=== PATIENT | male | born 1950 | race Caucasian/White ===

== ENCOUNTER → 2019-04-26 | Outpatient (CLI) | payer MEDICARE, BC ==
--- NOTE | 2019-04-26 11:32 | Diagnostic Imaging Report ---
EXAM: Bone mineral density study 04/26/2019 10:07 AM INDICATION: ^AGE RELATED OSTEOPOROSIS COMPARISON: Previous DEXA 02/16/2017. Baseline DEXA 02/16/2017 FINDINGS: Evaluation of the left hip and lumbar spine was performed. The study is technically adequate. The patient's fracture risk is compared to an age-matched control. The patient denies prior surgery/fracture of the spine, hips or forearm. LEFT HIP * Femoral neck bone mineral density: 0.836 gm/cm2, T-score is -0.7, Z-score is 0.4. * Total bone mineral density: 0.957 gm/cm2, T-score is -0.5, Z-score is 0.1. * BMD change versus previous is -1.0%. LUMBAR SPINE * Total bone mineral density: 1.080 gm/cm2, T-score is -0.1, Z-score is 0.7. * BMD change versus previous is +5.4%. IMPRESSION: 1. LEFT HIP: Bone mineralization by WHO Classification is normal, the fracture risk is not increased. 2. LUMBAR SPINE: Bone mineralization by WHO Classification is normal, the fracture risk is not increased. 3. Since previous (baseline) exam there is no significant change of bone mineral density at the left hip. 4. Since previous (baseline) exam there is significant improvement of bone mineral density in the lumbar spine. <T score: NL = -1 or higher Osteopenia = -1 to -2.5 Osteoporosis = -2.5 or lower Z score: < - 2 concerning for path> Signed by: Dr. Jorge Wagner M.D. on 04/26/2019 11:28 AM
== END ==
LOC: DX 10:00
PROVIDERS: ATTEND Internal Medicine
DX: M81.0 Age-related osteoporosis without current pathological fracture (principal)
CPT/HCPCS: 77080

== ENCOUNTER → 2019-05-03 | Outpatient (CLI) | payer MEDICARE, BC ==
--- NOTE | 2019-05-03 13:59 | Diagnostic Imaging Report ---
Exam: Cervical spine complete History: Preoperative study for cervical spine surgery Comparison: None. Findings: The cervical spine is visualized from skull base to the top of T1 on the lateral radiograph. No acute displaced fracture or subluxation. Soft tissue, ligamentous, and spinal cord abnormalities cannot be excluded on the basis of plain radiography. Mild disc space narrowing and marginal osteophytosis C4-5 and C5-6. Neural foramina are patent. Atlantoaxial interval is within normal limits. Prevertebral soft tissues are of normal thickness. Impression: 1. Degenerative disc changes C4-5 and C5-6. No acute osseous abnormalities. Signed by: Dr. Xavier Angel M.D. on 05/03/2019 1:56 PM
--- NOTE | 2019-05-03 14:00 | Diagnostic Imaging Report ---
EXAMINATION: PA and lateral views of the chest. COMPARISON: None CLINICAL HISTORY: Preoperative study for cervical spine surgery DISCUSSION: Lines/tubes: None. Lungs: The lungs are well inflated and clear. There is no evidence of pneumonia or pulmonary edema. Pleura: There is no pleural effusion or pneumothorax. Heart and mediastinum: Tortuous thoracic aorta. Normal heart size. No pulmonary edema. Bones and soft tissues: No acute bony abnormalities. Degenerative changes in the thoracic spine IMPRESSION: No acute cardiopulmonary abnormalities. Signed by: Dr. Xavier Angel M.D. on 05/03/2019 1:57 PM
== END ==
LOC: RAD 13:00
PROVIDERS: ATTEND Internal Medicine
DX: Z01.818 Encounter for other preprocedural examination (principal); M06.9 Rheumatoid arthritis, unspecified
CPT/HCPCS: 71046; 72050